=== PATIENT | male | born 1965 | race Two or more races ===

== ENCOUNTER 2024-05-25 11:18 | Emergency (ER) | payer MEDICAID, OTHER ==
[~2024-05-25] VITALS: Ht 167.6 cm; Wt 90.9 kg
--- NOTE | 2024-05-25 11:45 | ED.PDOC ---
History of Present Illness HPI Comments 58 year old male presents to the ED with a chief complaint of RT knee pain onset yesterday. Patient states he began experiencing RT knee pain with swelling and burning sensation since yesterday. Denies trauma, injury, chest pain, shortness of breath, dizziness, fever, chills, nausea, vomiting, diarrhea. No other symptoms or modifying factors present at this time. Time Seen by MD: 11:38 Reviewed Notes: Medications, Allergies Allergies: Coded Allergies: NO KNOWN ALLERGIES (Unverified , 06/04/13) Information Source: Patient Mode of Arrival: Ambulatory Severity: Moderate Timing: Days Duration: Since onset Prehospital treatment: None Past Medical History PAST MEDICAL HISTORY: Denies Surgical History: Denies all surgeries Family History Family History: Unknown Social History Smoker: Cigarettes Alcohol: Denies ETOH Use Drugs: Denies Drug Use Lives In: Home Constitutional: denies: chills, diaphoresis, fatigue, fever, malaise, sweats, weakness, others EENTM: denies: blurred vision, double vision, ear bleeding, ear discharge, ear drainage, ear pain, ear ringing, eye pain, eye redness, hearing loss, mouth pain, mouth swelling, nasal discharge, nose bleeding, nose congestion, nose pain, photophobia, tearing, throat pain, throat swelling, voice changes, others Respiratory: denies: cough, hemoptysis, orthopnea, SOB at rest, shortness of breath, SOB with excertion, stridor, wheezing, others Cardiovascular: denies: chest pain, dizzy spells, diaphoresis, Dyspnea on exertion, edema, irregular heart beat, left arm pain, lightheadedness, palpitations, PND, syncope, others Gastrointestinal: denies: abdomen distended, abdominal pain, blood streaked bowels, constipated, diarrhea, dysphagia, difficulty swallowing, hematemesis, melena, nausea, poor appetite, poor fluid intake, rectal bleeding, rectal pain, vomiting, others Genitourinary: denies: burning, dysuria, flank pain, frequency, hematuria, incontinence, penile discharge, penile sore, pain, testicle pain, testicle swelling, urgency, others Neurological: denies: dizziness, fainting, headache, left sided numbness, left sided weakness, numbness, paresthesia, pre-existing deficit, right sided numbness, right sided weakness, seizure, speech problems, tingling, tremors, weakness, others Musculoskeletal: reports: others (RT knee pain, swelling ); denies: back pain, gout, joint pain, joint swelling, muscle pain, muscle stiffness, neck pain Integumetry: denies: bruises, change in color, change in hair/nails, dryness, laceration, lesions, lumps, rash, wounds, others Allergic/Immunocompromised: denies: Difficulty Healing, Frequent Infections, Hives, Itching, others Hematologic/Lymphatic: denies: anemia, blood clots, easy bleeding, easy bruising, swollen glands, others Endocrine: denies: excessive hunger, excessive sweating, excessive thirst, excessive urination, flushing, intolerance to cold, intolerance to heat, unexplained weight gain, unexplained weight loss, others Psychiatric: denies: anxiety, bipolar disorder, depression, hopeless, panic disorder, schizophrenia, sleepless, suicidal, others All Other Systems: Reviewed and Negative Physical Exam General Appearance: No Apparent Distress, Normal HEENT: Normal ENT Inspection, Pharynx Normal, TMs Normal Neck: Full Range of Motion, Non-Tender, Normal, Normal Inspection Respiratory: Chest Non-Tender, Lungs Clear, No Accessory Muscle Use, No Respiratory Distress, Normal Breath Sounds Cardiovascular: No Edema, No JVD, No Murmur, No Gallop, Normal Peripheral Pulses, Regular Rate/Rhythm Breast Exam: Deferred Gastrointestinal: No Organomegaly, Non Tender, No Pulsatile Mass, Normal Bowel Sounds, Soft Genitalia: Deferred Pelvic: Deferred Rectal: Deferred Extremities: Leg edema (1+ LT leg, 3+ RT leg), Normal capillary refill, No pedal edema, Swelling (RT knee), Tender (RT knee and warm to touch) Musculoskeletal : Apperance: Normal Neurologic: Alert, yeast distiller II-XII nml as Tested, No Motor Deficits, Normal Affect, Normal Mood, No Sensory Deficits Cerebellar Function: Normal Reflexes: Normal Skin: Dry, Normal Color, Warm Lymphatic: No Adenopathy Was a procedure done? Was a procedure done?: No X-Ray, Labs, Meds, VS Vital Signs Date Time Temp Pulse Resp B/P (MAP) Pulse Ox O2 Delivery O2 Flow Rate FiO2 05/25/24 11:40 98.1 75 16 120/74 (89) [address] [facility] [address] [place] [facility] [employer] [id number] Ph: [phone] DIAGNOSTIC IMAGING Diagnostic Imaging Report : [id number] Signed PATIENT: CLAUDIO SUAREZ ACCT: [id number] UNIT: [id number] : 1965 LOC: ER ROOM / BED: / AGE / SEX: 58 / M ADM STATUS: REG ER SERVICE [id number] ORDERING PHYSICIAN: MARCELLA GIRON MD PROCEDURE(s): RLDVT - RT Lower DVT REASON: edema and pain to the RLE ORDER NUMBER(s): [id number], ACCESSION NUMBER(s): [id number] Clinical History: edema and pain to the RLE Comparison: None Technique: Duplex Doppler evaluation of the deep venous system of the right lower extremity from the common femoral vein to the popliteal vein including color Doppler and spectral/pulsed waveform analysis was performed. Findings: The common femoral vein demonstrates appropriate compressibility and waveform variability. There is compressibility/patency of the great saphenous vein at the proximal thigh. The femoral vein demonstrates appropriate compressibility and waveform variability. The deep femoral vein demonstrates appropriate compressibility and waveform variability. The popliteal vein demonstrates appropriate compressibility and waveform variability. There is normal compressibility at the tibioperoneal trunk. Impression: No rightdeep venous thrombosis. If clinical concern/symptoms persist or worsen, short-interval follow-up study is suggested. ATED BY: KERA NORTON MD DICTATED DATE/TIME: 05/25/24 1231 SIGNED BY: KERA NORTON MD SIGNED DATE/TIME: 05/25/24 1231 CC: [place] [id number] Ph: [phone] DIAGNOSTIC IMAGING Diagnostic Imaging Report : [id number] Signed PATIENT: CLAUDIO SUAREZ ACCT: [id number] UNIT: [id number] : 1965 LOC: ER ROOM / BED: / AGE / SEX: 58 / M ADM STATUS: REG ER SERVICE 1147 ORDERING PHYSICIAN: MARCELLA GIRON MD PROCEDURE(s): RKN3 - R KNEE 3V XRAY REASON: pain ORDER NUMBER(s): [id number], ACCESSION NUMBER(s): [id number] EXAM: XY R KNEE 3V XRAY CLINICAL INDICATION: pain TECHNIQUE: XY R KNEE 3V XRAY Comparison: None FINDINGS/IMPRESSION: There is no evidence of acute fracture or dislocation. The visualized joint space is well maintained. The alignment is anatomical. There is no radiopaque foreign body. ATED BY: INDIRA SENA MD DICTATED DATE/TIME: 05/25/24 1210 SIGNED BY: INDIRA SENA MD SIGNED DATE/TIME: 05/25/24 1210 CC: Time of 1ST Reevaluation: 12:08 Reevaluation 1ST: Unchanged Patient Education/Counseling: Diagnosis, Treatment, Prognosis Family Education/Counseling: No Family Present Additional Information The following tests were ordered, and results were reviewed by me: XY R KNEE 3V, US RT LOWER DVT, CBC, CMP, BLOOD CULTURE I reviewed and agreed with the following test results read by other providers: XY R KNEE 3V, US RT LOWER DVT, I discussed treatment and results with medical personnel and patient Critical Care Note Critical Care Time?: No Stability Stability form required: No I personally scribed for MARCELLA GIRON MD ([email or web address]) on 05/25/24 at 11:45. Electronically submitted by Marylu Bearden ([email or web address]). I personally scribed for MARCELLA GIRON MD ([email or web address]) on 05/25/24 at 12:56. Electronically submitted by Marylu Bearden ([email or web address]). I personally scribed for MARCELLA GIRON MD ([email or web address]) on 05/25/24 at 12:57. Electronically submitted by Marylu Bearden ([email or web address]). MARCELLA GIRON MD May 25, 2024 11:45
--- NOTE | 2024-05-25 12:12 | DVH ---
EXAM: XY R KNEE 3V XRAY CLINICAL INDICATION: pain TECHNIQUE: XY R KNEE 3V XRAY Comparison: None FINDINGS/IMPRESSION: There is no evidence of acute fracture or dislocation. The visualized joint space is well maintained. The alignment is anatomical. There is no radiopaque foreign body.
--- NOTE | 2024-05-25 12:32 | DVH ---
Clinical History: edema and pain to the RLE Comparison: None Technique: Duplex Doppler evaluation of the deep venous system of the right lower extremity from the common femo ral vein to the popliteal vein including color Doppler and spectral/pulsed waveform analysis was perf ormed. Findings: The common femoral vein demonstrates appropriate compressibility and waveform variability. There is compressibility/patency of the great saphenous vein at the proximal thigh. The femoral vein demonstrates appropriate compressibility and waveform variability. The deep femoral vein demonstrates appropriate compressibility and waveform variability. The popliteal vein demonstrates appropriate compressibility and waveform variability. There is normal compressibility at the tibioperoneal trunk. Impression: No rightdeep venous thrombosis. If clinical concern/symptoms persist or worsen, short-interval follow-up study is suggested.
[2024-05-25 12:56] VITALS: BP 128/90; PULSE 76; RESP 16; TEMP 99.2; O2SAT 95
== END 2024-05-25 13:10 | disposition left against medical advice (07) ==
LOC: ER 11:18
DX: R60.0 Localized edema (principal); M25.561 Pain in right knee; F17.210 Nicotine dependence, cigarettes, uncomplicated
CPT/HCPCS: 73562; 93971